=== PATIENT | female | born 1995 | race Caucasian/White ===

== ENCOUNTER 2016-09-10 12:24 | Emergency (ER) | payer BC ==
[2016-09-10 12:30] VITALS: BP 107/64
--- NOTE | 2016-09-10 13:03 | UC ---
Eye Complaint HPI - HPI Summary HPI Summary: 21 y/o female presents to the urgent care c/o dizziness and pain on her LF eye, left ear and left side of neck for the past 2 weeks on and off. She has been taking Advil 600mg PO for the past couple of days w/o any complete resolution of symptoms. Pt wears contacts lenses and was examined by photographic artist about 2 months ago. Pt reports she feels dizzy w/ movement and nausea at times , feels b/l eye pressure. Pain is 4/10. Pt denies fever, SOB, OCAMPO, chest pain, V/ D, urinary symptoms. LMP: 09/05/2016 - History of Current Complaint Hx Obtained From: Patient Hx Last Menstrual Period: 09/05/16 ?: No Onset/Duration: Gradual Onset, Lasting Weeks - 2 weeks Severity Initially: Mild Severity Currently: Moderate Pain Intensity: 4 - left neck pain Pain Scale Used: 0-10 Numeric Location of Injury: Globe - B/L eye pain after applying pressure Character: Dull Aggravating Factor(s): Nothing Alleviating Factor(s): Nothing Associated Signs And Symptoms: Positive: Negative. Negative: Photophobia, Drainage (Clear), Drainage (Purulent), Fever, Swelling - Risk Factors Penetrating Injury Risk Factor: Negative Globe Rupture Risk Factors: Negative Acute Glaucoma Risk Factors: Negative Optic Artery Occlusion Risk Factors: Negative <Lashaun Oliva - Last Filed: 09/11/16 20:06> <Gwendolyn Jensen - Last Filed: 09/11/16 20:30> - History of Current Complaint Chief Complaint: UCHeadache Stated Complaint: PAIN BEHIND EYES & DOWN NECK Time Seen by Provider: 09/10/16 12:41 - Allergies/Home Medications Allergies/Adverse Reactions: Allergies Allergy/AdvReac Type Severity Reaction Status Date / Time No Known Allergies Allergy Verified 09/10/16 12:29 Home Medications: Home Medications Ibuprofen [Advil] 200 mg PO 09/10/16 [History] PMH/Surg Hx/FS Hx/Imm Hx Previously Healthy: Yes - Surgical History Surgical History: None - Family History Known Family History: Positive: None - Social History Occupation: Student Lives: With Family Alcohol Use: None Substance Use Type: None Smoking Status (MU): Never Smoked Tobacco <Lashaun Oliva - Last Filed: 09/11/16 20:06> Review of Systems Constitutional: Negative Skin: Negative Eyes: Other - mild left eye pain on and off, specially she touches her eye and apply pressure ENT: Ear Ache - Left ear pain on and off Respiratory: Negative Cardiovascular: Negative Gastrointestinal: Negative Genitourinary: Negative Motor: Negative Neurovascular: Negative Musculoskeletal: Other: - left neck pain Neurological: Negative Psychological: Negative All Other Systems Reviewed And Are Negative: Yes <Lashaun Oliva - Last Filed: 09/11/16 20:06> Physical Exam Triage Information Reviewed: Yes Appearance: Well-Appearing, No Pain Distress, Well-Nourished, Thin Vital Signs: Initial Vital Signs Temp 99.1 F 09/10/16 12:25 Pulse 76 09/10/16 12:25 Resp 18 09/10/16 12:25 BP 107/64 09/10/16 12:25 Pulse Ox 100 09/10/16 12:25 Vital Signs Reviewed: Yes Eye Exam: Normal Eyes: Positive: Conjunctiva Clear - PERRLA, EOMI,fundi grossly normal, B/L conjunctiva clear. no tenderness on palpation. Head is normocephalic, atraumatic, no masses or lesions observed. Apply manuever performed and pt felt the room was spinning, mild horiontal nistagmus elicited whe head rotated to the left. ENT Exam: Normal ENT: Positive: Normal ENT inspection, Hearing grossly normal, Pharynx normal, TMs normal - B/L Dental Exam: Normal Neck exam: Normal Neck: Positive: Supple, No Lymphadenopathy, Tenderness @ - point tenderness on left side of neck at base of left side of scalp amd upper side of neck, no swelling, no eryhtmea observed. FROM of neck, no lymphnodes enlarged. Respiratory Exam: Normal Respiratory: Positive: Chest non-tender, Lungs clear, Normal breath sounds Cardiovascular Exam: Normal Cardiovascular: Positive: RRR, No Murmur, Pulses Normal, Brisk Capillary Refill Abdominal Exam: Normal Abdomen Description: Positive: Nontender, No Organomegaly, Soft. Negative: CVA Tenderness (R), CVA Tenderness (L) Bowel Sounds: Positive: Present Musculoskeletal Exam: Normal Musculoskeletal: Positive: Strength Intact, ROM Intact, No Edema Neurological Exam: Normal Psychological Exam: Normal Skin Exam: Normal <Lashaun Oliva - Last Filed: 09/11/16 20:06> Vital Signs: Initial Vital Signs Temp 99.1 F 09/10/16 12:25 Pulse 76 09/10/16 12:25 Resp 18 09/10/16 12:25 BP 107/64 09/10/16 12:25 Pulse Ox 100 09/10/16 12:25 <Gwendolyn Jensen - Last Filed: 09/11/16 20:30> Eye Complaint Course/Dx - Course Course Of Treatment: 21 y/o female presents to the urgent care c/o dizziness and pain on her LF eye, left ear and left side of neck for the past 2 weeks on and off. She has been taking Advil 600mg PO for the past couple of days w/o any complete resolution of symptoms. Pt wears contacts lenses and was examined by photographic artist about 2 months ago. Pt reports she feels dizzy w/ movement and nausea at times , feels b/l eye pressure. Pain is 4/10. Pt denies fever, SOB, OCAMPO, chest pain, V/D, urinary symptoms. LMP: 09/05/2016. Hx obtained. PE abnormal findings:Eyes: Positive: Conjunctiva Clear - PERRLA, EOMI,fundi grossly normal, B/L conjunctiva clear. no tenderness on palpation. Head is normocephalic, atraumatic, no masses or lesions observed. Apply manuever performed and pt felt the room was spinning, mild horiontal nistagmus elicited whe head rotated to the left.Neck: Positive: Supple, No Lymphadenopathy, Tenderness @ - point tenderness on left side of neck at base of left side of scalp amd upper side of neck, no swelling, no eryhtmea observed. FROM of neck, no lymphnodes enlarged. The rest of the PE WNL. Qustionable BPPV ?? Pt RX Meclizine to alleviate symptoms and advised to f/u with her PCP and Neurologist for further evaluationa and treatment. Pt recently visited opthalmologist and contact lenses renewed. Pt understood and agreed. Left the clinic ambulating. -Cervicalgia: Pt advised to continue taking Ibuprofen prn to alleviate symptoms. - Differential Dx/Diagnosis Differential Diagnosis/HQI/PQRI: Conjunctivitis, Corneal Abrasion, Other - vertigo, BPPV, Otitis media, Otitis externa Provider Diagnoses: 1- Vertigo. 2-Neck pain <Lashaun Oliva - Last Filed: 09/11/16 20:06> Discharge <Lashaun Oliva - Last Filed: 09/11/16 20:06> <Gwendolyn Jensen - Last Filed: 09/11/16 20:30> - Discharge Plan Condition: Good Disposition: HOME Prescriptions: Meclizine TAB* [Antivert 12.5 TAB*] 25 mg PO TID #30 tab Patient Education Materials: Dizziness (ED) Referrals: No Primary Care Phys,NOPCP [Primary Care Provider] - [facility] [place] [facility] [Outside] - 3 Days Nakita Macario MD [Medical Doctor] - 1 Week Additional Instructions: Please take mediation to alleviate dizziness and continue with Ibuprofen q6-8hr prn after meals to alleviate neck pain. Please make and appt with a PCP in the [facility] [place] center for further evaluation and treatment. Make an appt with Dr Macario Neurologist for further evaluation in your dizziness Attestation Statement User Type: Provider - I was available for consult. This patient was seen by the ALBERTO. The patient was not presented to, seen by, or examined by me. -Moi <Gwendolyn Jensen - Last Filed: 09/11/16 20:30>
== END 2016-09-10 13:11 | disposition home or self-care (01) ==
LOC: UCEAST 12:24
DX: R42 Dizziness and giddiness (principal); M54.2 Cervicalgia
CPT/HCPCS: 99212; G0463